=== PATIENT | male | born 2000 | race Caucasian/White ===

== ENCOUNTER 2025-05-24 23:51 | Emergency (ER) | payer SELFPAY ==
[2025-05-25] MEDS: Lidocaine 1% with EPINEPHrine 1:200,000 30 ML SDV INJECT ONE (02:10)
[2025-05-25] MEDS: Diphtheria,Pertussis(Acell),Tetanus Vaccine 0.5 ML Syringe IM ONE (02:17)
[2025-05-25] MEDS: Amoxicillin/Clavulanate K 875-125 MG Tab PO ONE (02:17)
[2025-05-25] MEDS: Bacitracin Oint 1 GM U/D Packet TOP ONE (05:41)
== END 2025-05-25 05:42 | disposition home or self-care (01) ==
LOC: EDBD 23:51 → MW.ED 23:51
DX: S01.152A Open bite of left eyelid and periocular area, initial encounter (principal); S01.85XA Open bite of other part of head, initial encounter; F17.200 Nicotine dependence, unspecified, uncomplicated; Z23 Encounter for immunization; W54.0XXA Bitten by dog, initial encounter
CPT/HCPCS: 70486; 90471; 90715; 99283; A9270; J2004